=== PATIENT | male | born 1980 | race Hispanic/Latino ===

== ENCOUNTER → 2018-09-12 | Outpatient (CLI) | payer BC ==
--- NOTE | 2018-09-13 18:30 | US ---
EXAM DESCRIPTION: Testicular: Ultrasound. CLINICAL HISTORY: 37 years Male Testicular pain COMPARISON: None. TECHNIQUE: Transcutaneous scanning ; greco-scale and Doppler modes. FINDINGS: Dimensions of the right testicle are 4.6 x 2.6 x 2.5 cm, with normal echogenicity and normal color Doppler flow. Epididymal head measures 7.5 x 9.7 x 4.0 mm, with normal echogenicity and normal color Doppler flow. No scrotal wall thickening. Small Hydrocele. Dimensions of the left testicle are 3.8 x 2.7 x 2.5 cm, with normal echogenicity and normal color Doppler flow. Epididymal head measures 13 x 8 x 5 mm, with normal echogenicity and normal color Doppler flow. No scrotal wall thickening. Small Hydrocele. IMPRESSION: 1. Normal bilateral testicles and epididymides. 2. Small hydroceles bilaterally. Electronically signed by: Tommy Best MD 09/13/2018 6:27 PM CDT
== END ==
LOC: US 11:11
PROVIDERS: ATTEND Family Medicine
DX: N43.3 Hydrocele, unspecified (principal)